=== PATIENT | female | born 1980 | race Caucasian/White ===

== ENCOUNTER → 2023-12-21 09:36 | Outpatient (REF) | payer OTHER, SELFPAY ==
[2023-12-22 15:03] LABS: Lyme Antibody Screen, EIA Negative (Negative)
== END ==
LOC: REG 09:36
PROVIDERS: ATTENDING PHYSICIAN Internal Medicine Infectious Disease
DX: M25.50 Pain in unspecified joint (principal)
CPT/HCPCS: 36415; 86618

== ENCOUNTER → 2024-09-12 13:12 | Outpatient (REF) | payer OTHER, SELFPAY | LOC: HWRAD 13:12 | PROVIDERS: ATTENDING PHYSICIAN Clinical Nurse Specialist Women's Health | DX: Z12.31 Encounter for screening mammogram for malignant neoplasm of breast (principal); N93.0 Postcoital and contact bleeding | CPT/HCPCS: 76830; 76856; 77063; 77067 ==

== ENCOUNTER 2025-02-25 06:06 | Day surgery (SDC) | payer OTHER, SELFPAY ==
[2025-02-23 10:01] LABS: Hematocrit 33.9 % (37.0-47.0); Hemoglobin 11.1 g/dL (12.0-16.0); Mean Corp Hgb Conc. 32.7 g/dL (33.0-37.0); Mean Corpuscular Volume 84.8 fL (81.0-99.0); Nucleated Red Blood Cells % 0 %; Platelet Count 189 10^3/uL (130-400); Red Cell Dist. Width 13.8 % (11.5-14.5)
[2025-02-23 10:19] LABS: HCG, Serum Qualitative Screen Negative
[2025-02-25] VITALS (7 sets, daily range): BP systolic 95–117; BP diastolic 65–77; BMI 24.0
[2025-02-25] MEDS: TYLENOL 1000 MG PO (08:22)
[2025-02-25] MEDS: BENADRYL 25 MG IV (08:32)
[2025-02-25] MEDS: ROXICODONE 5 MG PO (11:26)
--- NOTE | 2025-02-25 14:04 | OR.RPT ---
Operative Report
Operative Report
Procedure date: 02/25/2025
Preop diagnosis:
- Abnormal uterine bleeding
- Thickened endometrium on ultrasound
Postop diagnosis
- same
Procedure
- Hysteroscopy, dilation and curettage
Surgeon: Corina
Anesthesia: MAC
EBL 10cc
Complications: none
Findings
- Normal appearing external genitalia
- Cervix without lesions or masses
- Bimanual exam with normal sized retroverted uterus
- Hysteroscopic evaluation revealed proliferative endometrium. Bilateral tubal ostia visualized
Pathology: endometrial curettings
Indication:
Patient is a 44yo who presents for scheduled hysteroscopy D&C. She has been having heavy periods and lower abdominal pain and had a pelvic ultrasound done. Pelvic ultrasound revealed thickened endometrium. Hysteroscopy D&C recommended for
further evaluation. Risks, benefits and alternatives to the procedure were discussed and all questions answered. Consents were signed.
Procedure:
Patient was taken to the operating room and placed under general anesthesia. She was placed in the dorsal lithotomy position with Diaz type stirrups. She was prepped and draped in the normal sterile fashion. Bimanual exam revealed the
aforementioned findings. The bladder was drained with a straight catheter yielding 200cc of clear urine. A Escoto retractor was placed in the anterior portion of the vagina and a weighted speculum in the posterior aspect of the vagina revealing good
visualization the cervix. The anterior lip of the cervix was grasped with a single tooth tenaculum. The cervix was sequentially dilated to accommodate the Myosure hysteroscope. The hysteroscope was advanced under direct visualization. Hysteroscopic
evaluation revealed the aforementioned findings. The hysteroscope was removed. A size 0 curette was introduced into the cervix. The uterus was curetted in a clockwise fashion until uterine cry was felt in all quadrants. Endometrial curettings were
sent to pathology for evaluation. The tenaculum was removed from the cervix and good hemostasis was noted. All instruments were removed from the vagina.
The patient tolerated the procedure well. All sponge and instrument counts were correct x2. She was taken to PACU in stable condition.
== END 2025-02-25 11:45 | disposition home or self-care (01) ==
LOC: SDS 06:06
PROVIDERS: ATTENDING PHYSICIAN Student in an Organized Health Care Education/Training Program
DX: R93.89 Abnormal findings on diagnostic imaging of other specified body structures (principal)
CPT/HCPCS: 58558; 36415; 84703; 85025; 86850; 86900; 86901; 88305

== ENCOUNTER → 2025-03-26 13:23 | Outpatient (REF) | payer OTHER, SELFPAY | LOC: HWRAD 13:23 | PROVIDERS: ATTENDING PHYSICIAN Nurse Practitioner Adult Health | DX: M46.1 Sacroiliitis, not elsewhere classified (principal) | CPT/HCPCS: 72202 ==

== ENCOUNTER → 2025-05-02 13:23 | Outpatient (REF) | payer OTHER, SELFPAY | LOC: HWRAD 13:23 | PROVIDERS: ATTENDING PHYSICIAN Obstetrics & Gynecology | DX: N94.6 Dysmenorrhea, unspecified (principal); R10.2 Pelvic and perineal pain | CPT/HCPCS: 76830; 76856 ==

== ENCOUNTER 2025-05-13 18:33 | Emergency (ER) | payer OTHER, SELFPAY ==
[2025-05-13 18:34] VITALS: BP 127/83
[2025-05-13 18:59] LABS: Hematocrit 33.7 % (37.0-47.0); Hemoglobin 11.3 g/dL (12.0-16.0); Mean Corp Hgb Conc. 33.5 g/dL (33.0-37.0); Mean Corpuscular Volume 86.4 fL (81.0-99.0); Nucleated Red Blood Cells % 0 %; Platelet Count 245 10^3/uL (130-400); Red Cell Dist. Width 13.7 % (11.5-14.5)
[2025-05-13 19:02] LABS: ALT (SGPT) 15 U/L (0-35); AST (SGOT) 21 U/L (14-36); Albumin 4.3 g/dl (3.5-5.0); Alkaline Phosphatase 51 U/L (38-126); Blood Urea Nitrogen 9 mg/dl (7-17); Calcium 8.7 mg/dl (8.4-10.2); Carbon Dioxide 26 mmol/L (22-30); Chloride 106 mmol/L (98-107); Glucose 124 mg/dl (70-99); Potassium 3.9 mmol/L (3.5-5.1); Sodium 139 mmol/L (135-145); Total Protein 7.0 g/dl (6.3-8.2); eGFR > 60.00
[2025-05-13 19:32] LABS: COVID-19 Antigen Negative (Negative)
--- NOTE | 2025-05-13 20:20 | ED.GENMED ---
History of Present Illness
General
Chief Complaint: Cold/Flu/URI Symptoms
Time Seen by Provider: 05/13/25 19:49
History of Present Illness
History of Present Illness:
45-year-old female presents to the emergency department for evaluation of persistent cough, chest congestion, postnasal drip, and intermittent fevers for the past 2 weeks. Has been seen by her primary doctor and urgent care and diagnosed with a
viral respiratory illness but symptoms are now improving. Denies shortness of breath or chest pain. No rashes.
Past History
Past History
ED Past Medical History: Other (Chronic neck pain)
ED Past Surgical History: Other (Nerve ablations)
Social History
Tobacco: Non-smoker
Alcohol: None
Drug: None
Personal:
Living: with family
Employment: Employed
Review of Systems
Review of Systems
Allergies reviewed?: Yes
All Other Systems: ROS reviewed and negative except as documented in HPI and ROS
Phy Exam
Physical Exam
Physical Exam:
GEN: Well appearing, NAD, WDWN
HEENT: Oral mucosa moist, no scleral icterus, oral mucosa clear with no erythema or exudate
Cardiac: Regular rate and rhythm,
Lung: No respiratory distress, no tachypnea, lungs clear to auscultation
MSK: No gross deformity or injuries
Skin: Good color, no pallor or jaundice, no rashes
Neuro: AO x3, moves all extremities freely
Psych: Calm, cooperative
Course
Orders/Labs/Results
Orders:
Orders
05/13/25 18:43
COVID-19 Antigen Urgent
Source: Nasal Swab
Complete Blood Count/With Diff Urgent
Comprehensive Metabolic Panel Urgent
Influenza A+B Rapid Molecular Urgent
[facility] Source: Nasal Swab
Specimen Description:
05/13/25 20:20
Azithromycin [Zithromax] 500 mg PO NOW STA
Abnormal Lab Results
05/13/25
18:43
RBC 3.90 L 10^6/uL
(4.20-5.40)
Hgb 11.3 L g/dL
(12.0-16.0)
Hct 33.7 L %
(37.0-47.0)
Glucose 124 H mg/dl
(70-99)
05/13/25 18:43
05/13/25 18:43
Vital Signs
Initial and Last Documented VS:
Initial Vital Signs
Temp Pulse Resp BP Pulse Ox
97.7 F 69 18 127/83 98
05/13/25 18:34 05/13/25 18:34 05/13/25 18:34 05/13/25 18:34 05/13/25 18:34
Last Documented Vital Signs
Temp Pulse Resp BP Pulse Ox
97.7 F 69 18 127/83 98
05/13/25 18:34 05/13/25 18:34 05/13/25 18:34 05/13/25 18:34 05/13/25 20:21
MDM/Problems Addressed
MDM/Problems Addressed:
Patient does appear clinically well with normal labs, no focal adventitious lung sounds open given duration of illness this could be mycoplasma pneumonia and will treat with azithromycin accordingly, do not see indication for chest x-ray
*Pulse Oximetry
SaO2: 98
Oxygen Mode of Delivery: Room air
Patient hypoxic: no
*Critical Care Note
Total Time (30-74mins, 75-104mins- exclusive of procedures): Not Applicable
ED Attending Note
-
Portions of this chart may have been created with voice recognition software.� Occasional wrong word or��sound alike� substitutions may have occurred due to the inherent limitations of voice recognition software.
Discharge Plan
Departure
Patient Disposition: Home (Routine Discharge)
Date of Disposition: 05/13/25
Time of Disposition: 20:20
Patient with high blood pressure during this ER visit?: No
Discharge Problem:
Acute lower respiratory infection
Instructions: Cough in adults - ED (DC)
Prescriptions:
New
azithromycin [Zithromax] 250 mg tablet
250 mg PO DAILY Qty: 4 0RF
codeine-guaifenesin [Guaifenesin AC] 10-100 mg/5 mL liquid
5 ml PO Q6H PRN (Reason: Cough) Qty: 120 0RF
No Action
ibuprofen [Motrin] 600 mg Tablet
600 mg PO DAILY
vitamin [id number] acid 0.5-1 mg Tablet
1 tab PO DAILY
Collagen
1 dose PO DAILY
vitamin D2-vitamin K1
1 dose PO DAILY
Stand Alone Forms: Return to Work
Interventions
Interventions:
*Risk Screen - Suicide Last Done: 05/13/25 18:34
*General Assessment Last Done: 05/13/25 18:34
*Neglect/Abuse Screening Last Done: 05/13/25 20:46
*ED- Fall Risk Assessment Last Done: 05/13/25 20:46
*Nursing Disposition Last Done: 05/13/25 20:47
ED- Pulmonary Assessment Last Done: 05/13/25 20:46
Discharge Date and Time
Discharge Date/Time: 05/13/25 20:47
Print Language: CUBAN
[2025-05-13] MEDS: ZITHROMAX 500 MG PO (20:38)
== END 2025-05-13 20:47 | disposition home or self-care (01) ==
LOC: EMR 18:33
PROVIDERS: Emergency Medicine; EMERGENCY PHYSICIAN Emergency Medicine
DX: J22 Unspecified acute lower respiratory infection (principal); M54.2 Cervicalgia; G89.29 Other chronic pain
CPT/HCPCS: 99283; 80053; 85025; 87502; 87811

== ENCOUNTER → 2025-06-08 07:08 | Outpatient (REF) | payer OTHER, SELFPAY | LOC: MRI 07:08 | PROVIDERS: ATTENDING PHYSICIAN Nurse Practitioner Adult Health | DX: M54.2 Cervicalgia (principal) | CPT/HCPCS: 72141; 72148 ==